=== PATIENT | female | born 1960 | race Asian ===

== ENCOUNTER 2022-08-16 11:53 | Outpatient (CLI) | payer OTHER | END 2022-08-16 11:54 | disposition home or self-care (01) | LOC: BICMAMMO 11:53 | PROVIDERS: ATTEND Family Medicine | DX: Z12.31 Encounter for screening mammogram for malignant neoplasm of breast (principal); M81.0 Age-related osteoporosis without current pathological fracture | CPT/HCPCS: 77063; 77067; 77080 ==